=== PATIENT | female | born 1950 | race Caucasian/White ===

== ENCOUNTER 2016-10-15 17:56 | Emergency (ER) | payer OTHER, MEDICAID ==
[2016-10-15] MEDS ORDERED: OXYMETAZOLINE 30 ML NASAL SPRAY ONE (18:20)
--- NOTE | 2016-10-15 18:21 | EDPHY ---
H & P Stated Complaint: bloody nose Time Seen by Provider: 10/15/16 18:11 HPI/ROS: CHIEF COMPLAINT: Nose bleed HISTORY OF PRESENT ILLNESS: This is a 66-year-old with bleeding from the left nostril. She had an episode 2 nights ago after vigorously blowing her nose. This resolved with gauze packing and did not return until tonight, when she again blew her nose and developed bleeding. She is placed gauze moistened with lip balm in the left nostril and that seems to be controlling the bleeding. She is not on any anticoagulation medications. She does not take anti- inflammatory medications or aspirin. She has not had nasal trauma. She is not otherwise ill with cough or cold. REVIEW OF SYSTEMS: A ten point review of systems was performed and is negative with the exception of the items mentioned in the HPI. Source: Patient Exam Limitations: No limitations - Personal History Current Tetanus/Diphtheria Vaccine: Unsure Current Tetanus Diphtheria and Acellular Pertussis (TDAP): Unsure - Medical/Surgical History Hx Asthma: No Hx Chronic Respiratory Disease: No Hx Diabetes: No Hx Cardiac Disease: No Hx Renal Disease: No Hx Cirrhosis: No Hx Alcoholism: No Hx HIV/AIDS: No Hx Splenectomy or Spleen Trauma: No Other PMH: 1. colorectal cancer stage IV successfully treated with surgery. 2. MELENOMA (removed by sx). 3. toxic shock 1981 - Social History Smoking Status: Never smoked Additional Social History: She is employed at [employer]. No tobacco use. - Physical Exam Exam: General Appearance: Alert. Vital signs reviewed. Eyes: Pupils equal and round, no conjunctival injection, no discharge. Anicteric. ENT, Mouth: There is gauze protruding from the left nostril. She has a nasal clamp in place. Mucous membranes are moist, no oropharyngeal erythema or edema. Small streak of blood in the posterior oropharynx. Neck: No lymphadenopathy, supple. Respiratory: Lungs are clear to auscultation; no wheezes, rales, or rhonchi. Cardiovascular: Regular rate and rhythm; no murmur, rub, or gallop. Skin: Warm and dry, no rashes on exposed skin, normal color. Back: Nontender to palpation over the thoracolumbar spine. No CVAT. Neurological: Alert and oriented. Moving all four extremities easily and equally.. Psychiatric: Normal affect. Constitutional: Initial Vital Signs Temperature (C) 36.5 C 10/15/16 17:59 Heart Rate 82 10/15/16 17:59 Respiratory Rate 16 10/15/16 17:59 Blood Pressure 171/105 H 10/15/16 17:59 O2 Sat (%) 96 10/15/16 17:59 O2 Delivery Mode Room Air Allergies/Adverse Reactions: AMOX/K CLAV Allergy (Uncoded 06/15/15 19:21) Rash Home Medications: Medication Instructions Recorded Hydrocodone/APAP 5/325 [[place] 1 - 2 each PO Q4-6PRN PRN #20 tab 11/17/15 5/325] Ondansetron Odt [Zofran Odt 4 mg 4 mg PO Q4 PRN #10 tab 11/17/15 (RX)] Medical Decision Making Procedures: Gauze was removed from the left nostril. 4% cocaine soaked cotton ball was placed into the left nostril. This was left in place for 10 minutes. Upon its removal her nostril was inspected with nasal speculum and bright light. I do not see a bleeding point. There is no active bleeding. ED Course/Re-evaluation: Bleeding stopped with pressure and cocaine soaked pledget. I do not see evidence of a bleeding site. No anticoagulation medications. No trauma. - Data Points Medications Given: Discontinued Medications Cocaine HCl (Cocaine Hcl) 1 carlin TP EDNOW ONE Stop: 10/15/16 18:26 Last Admin: 10/15/16 18:27 Dose: 1 carlin Departure - Departure Disposition: Home, Routine, Self-Care Clinical Impression: Acute anterior epistaxis Condition: Good Instructions: Nosebleed (ED) Referrals: Tami Preciado MD [Medical Doctor] - As per Instructions
[2016-10-15] MEDS ORDERED: COCAINE HCL 4% 4 ML BTL TP ONE ×2 (18:24→18:25)
[2016-10-15 19:35] VITALS: BP 117/72; PULSE 64; RESP 18; TEMP 98.2; O2SAT 95
== END 2016-10-15 19:33 | disposition home or self-care (01) ==
PROC: 2Y41X5Z Packing of Nasal Region using Packing Material (ICD-10-PCS; principal; 2016-10-15)
DX: R04.0 Epistaxis (principal); Z85.038 Personal history of other malignant neoplasm of large intestine; Z85.820 Personal history of malignant melanoma of skin

== ENCOUNTER 2016-11-30 12:24 | Emergency (ER) | payer OTHER, MEDICAID ==
[2016-11-30 12:30] VITALS: RESP 16; TEMP 98.2; O2SAT 98
--- NOTE | 2016-11-30 15:05 | EDPHY ---
H & P Time Seen by Provider: 11/30/16 13:32 HPI/ROS: CHIEF COMPLAINT: Right facial pain HISTORY OF PRESENT ILLNESS: 66-year-old female presents to the emergency department by private vehicle complaining of severe pain to the right side of her face intermittently for the last 1 month. She denies any known trauma or injury. She has no history of sinus infections. She feels the pain especially in the afternoon after she eats something. She has had recurring epistaxis of the left nostril 8 times since October 2016. No previous history of sinus infections or epistaxis in the past. She has been trying [id number] medication including guaifenesin without relief no fevers or chills. No chest pain or difficulty breathing. No abdominal pain. Patient has a history of colon cancer with mets to the liver. She was not treated with chemoradiation as recommended. She had resection done at [facility]. REVIEW OF SYSTEMS: Constitutional: No fever, no chills. Eyes: No double or blurry vision. ENT: No sore throat. Respiratory: No cough, no shortness of breath. Cardiac: No chest pain. Gastrointestinal: No abdominal pain, vomiting or diarrhea. Genitourinary: No dysuria. Musculoskeletal: No neck or back pain. Skin: No rashes. Neurological: As above. No headache. Past Medical/Surgical History: Colon cancer with metastasis to the liver. Social History: and lives in [place] Smoking Status: Never smoked Physical Exam: General Appearance: Alert, no distress. Temperature 36.8, blood pressure 141/ 90. No apparent distress. Eyes: Pupils equal and round. Extraocular motions are all intact. ENT: Mouth: Mucous membranes moist. Nontender to palpate along maxillary or frontal sinuses bilaterally. Right nostril reveals some purulent material and some mild swollen turbinates on the right side. No postnasal drip noted. Respiratory: No wheezing, rhonchi, or rales, lungs are clear to auscultation. Cardiovascular: Regular rate and rhythm. Gastrointestinal: Abdomen is soft and nontender, no masses, no rebound or guarding, bowel sounds normal. Neurological: Alert and oriented x 3, cranial nerves II through XII grossly intact Skin: Warm and dry, no rashes. Musculoskeletal: Nontender to palpate along the cervical, thoracic or lumbar spine. Neck is supple. Extremities: Full range of motion and no peripheral edema. Psychiatric: Patient is oriented X 3, there is no agitation. Constitutional: Initial Vital Signs Temperature (C) 36.8 C 11/30/16 12:28 Heart Rate 68 11/30/16 12:28 Respiratory Rate 16 11/30/16 12:28 Blood Pressure 141/90 H 11/30/16 12:28 O2 Sat (%) 98 11/30/16 12:28 O2 Delivery Mode Room Air Allergies/Adverse Reactions: AMOX/K CLAV Allergy (Uncoded 11/30/16 12:31) Rash Home Medications: Medication Instructions Recorded Hydrocodone/APAP 5/325 [[place] 1 - 2 each PO Q4-6PRN PRN #20 tab 11/17/15 5/325] Ondansetron Odt [Zofran Odt 4 mg 4 mg PO Q4 PRN #10 tab 11/17/15 (RX)] levOFLOXACIN [Levaquin] 500 mg PO DAILY #7 tablet 11/30/16 Medical Decision Making - Diagnostics Imaging: CT maxillofacial: Extensive right sided sinus opacification centered in the right maxillary sinus. This appearance is most consistent with subacute sinusitis. The clinical history of onset of one month is not considered suggestive of polyposis. This is reported by Dr. Stanley Rojas. ED Course/Re-evaluation: 66-year-old female presents to the emergency department with severe right facial pain. Patient is concerned about possible sinus infection. She has no previous history of sinus infections. She has been afebrile. She denies any reported trauma. Given the patient's past medical history of cancer and no history of previous sinus infections or epistaxis, I recommended CT imaging of the face without IV contrast. Patient verbalized understanding and agreed. CT reveals: Extensive right sided sinus opacification centered in the right maxillary sinus. This appearance is most consistent with subacute sinusitis. The clinical history of onset of one month is not considered suggestive of polyposis. The patient was treated with Levaquin and not Augmentin due to her penicillin allergy. She was given ENT referral. Differential Diagnosis: Including but not limited to sinusitis, carcinoma, viral upper respiratory infection, dental infection Departure - Departure Disposition: Home, Routine, Self-Care Clinical Impression: Acute sinusitis Qualifiers: Sinusitis location: pansinusitis Recurrence: non-recurrent Qualified Code(s): J01.40 - Acute pansinusitis, unspecified Condition: Good Instructions: Sinusitis (ED) Additional Instructions: Levaquin 500mg daily 7 days. Mucinex 1200mg twice daily to help relieve congestion. Drink plenty of fluids. Flonase, over the counter, as directed. Steam as discussed. Return if you develop a fever, increasing pain or if you feel worse in any way. Follow up with ENT. Referrals: Dominga Lloyd MD [Medical Doctor] - 5-7 days, call for appt. (ENT on-call) Mi Mendez MD [Medical Doctor] - As per Instructions ([facility]) Bobby Fisher MD [Medical Doctor] - As per Instructions ([facility]) Prescriptions: levOFLOXACIN [Levaquin] 500 mg PO DAILY #7 tablet
[2016-11-30 17:14] VITALS: BP 164/97; PULSE 69
== END 2016-11-30 17:13 | disposition home or self-care (01) ==
DX: J01.40 Acute pansinusitis, unspecified (principal); Z85.038 Personal history of other malignant neoplasm of large intestine; Z85.05 Personal history of malignant neoplasm of liver

== ENCOUNTER → 2018-10-11 | Outpatient (CLI) | payer OTHER ==
[~2018-10-11] MED LIST: IOPAMIDOL (ISOVUE 370) 100 ML BTL IV ONE
== END ==
LOC: FIMAGING 09:18
PROVIDERS: ATTEND Internal Medicine Hematology & Oncology
DX: N13.0 Hydronephrosis with ureteropelvic junction obstruction (principal); R93.89 Abnormal findings on diagnostic imaging of other specified body structures; R10.30 Lower abdominal pain, unspecified; R60.0 Localized edema; Z85.048 Personal history of other malignant neoplasm of rectum, rectosigmoid junction, and anus
CPT/HCPCS: 74174; 93970; Q9967